=== PATIENT | male | born 1945 | race Caucasian/White ===

== ENCOUNTER 2021-08-06 12:36 | Outpatient (CLI) | payer MEDICARE, OTHER ==
[2021-08-06 13:08] LABS: Estimated GFR-MDRD - POC Greater than 90
== END 2021-08-06 12:37 | disposition home or self-care (01) ==
LOC: CT 12:36
PROVIDERS: ATTEND Thoracic Surgery (Cardiothoracic Vascular Surgery)
DX: I70.212 Atherosclerosis of native arteries of extremities with intermittent claudication, left leg (principal); I71.4 Abdominal aortic aneurysm, without rupture; I70.8 Atherosclerosis of other arteries; R16.1 Splenomegaly, not elsewhere classified
CPT/HCPCS: 75635; 82565

== ENCOUNTER 2022-07-30 14:00 | Outpatient (CLI) | payer MEDICARE, OTHER ==
[~2022-07-30 14:00] MED LIST: Iopamidol 370 76% 100 ML VIAL ONE
== END 2022-07-30 14:01 | disposition home or self-care (01) ==
LOC: CT 14:00
PROVIDERS: ATTEND Physician Assistant Medical
DX: K21.9 Gastro-esophageal reflux disease without esophagitis (principal); K59.09 Other constipation; R10.30 Lower abdominal pain, unspecified; I77.4 Celiac artery compression syndrome; I77.1 Stricture of artery
CPT/HCPCS: 74177; 82565; Q9967

== ENCOUNTER 2024-02-26 13:38 | Emergency (ER) | payer MEDICARE, OTHER ==
[2024-02-26 14:15] LABS: Hematocrit 38.2 % (42.0-52.0); Hemoglobin 12.6 g/dL (14.0-18.0); Mean Corpuscular Hemoglobin 32.7 pg (27.0-31.0); Mean Corpuscular Volume 99.2 fL (78.0-98.0); Mean Platelet Volume 10.5 fL (7.4-10.4); Platelet Count 131 10x3/uL (130-400); RBC Distribution Width 16.9 % (11.5-14.5); Red Blood Cell (RBC) Count 3.85 mill/uL (4.70-6.10)
[2024-02-26 14:41] LABS: Band 2 % (5-11); Large Platelets 2.9 % (0-5); Lymphocytes 75 % (21-51); Monocytes 2 % (0-10); Neutrophil 14 % (42-75); Platelet Adequacy Comment Platelets Decreased; Polychromasia SLIGHT = 2-3 cells HPF (0-2); Reactive Lymphocytes 8 % (0-10); Reflex for Review?? YES; Smudge Cells 54.9 %
[2024-02-26 14:44] LABS: ALT (SGPT) 13 U/L (8-55); AST (SGOT) 20 U/L (5-34); Albumin 4.1 g/dL (3.4-4.8); Alkaline Phosphatase 62 U/L (40-110); Anion Gap 16 mmol/L (10-20); BUN (Urea Nitrogen) 16 mg/dL (8.4-25.7); Bilirubin, Total 0.7 mg/dL (0.2-1.2); Calc. Creatinine Clearance 0 mL/min (70-130); Calcium 9.3 mg/dL (7.8-10.44); Carbon Dioxide 21 mmol/L (23-31); Chloride 108 mmol/L (98-107); Estimated GFR 90; Globulin 2.1 g/dL (2.4-3.5); Glucose 109 mg/dL (83-110); Potassium 4.6 mmol/L (3.5-5.1); Protein, Total 6.2 g/dL (5.8-8.1); Sodium 140 mmol/L (136-145)
[2024-02-26 14:51] LABS: Troponin I Less than 0.010 ng/mL (< 0.028)
== END 2024-02-26 18:10 | disposition home or self-care (01) ==
LOC: ERS 13:38
DX: D72.820 Lymphocytosis (symptomatic) (principal); R59.1 Generalized enlarged lymph nodes; R20.2 Paresthesia of skin; I99.8 Other disorder of circulatory system; I10 Essential (primary) hypertension; J44.9 Chronic obstructive pulmonary disease, unspecified; F17.200 Nicotine dependence, unspecified, uncomplicated; Z79.02 Long term (current) use of antithrombotics/antiplatelets; Z79.51 Long term (current) use of inhaled steroids; Z79.82 Long term (current) use of aspirin; Z79.899 Other long term (current) drug therapy
CPT/HCPCS: 32551; 70450; 71275; 74174; 80053; 83880; 84484; 85025; 85060; 93005

== ENCOUNTER 2024-10-11 11:43 | Day surgery (SDC) | payer MEDICARE, OTHER ==
[2024-10-11] MEDS ORDERED: diphenhydrAMINE 25 MG CAP ONE (13:28)
[2024-10-11] MEDS ORDERED: Acetaminophen 500 MG TAB ONE (13:28)
[2024-10-11] MEDS: diphenhydrAMINE 25 MG CAP PO SCH (13:32)
[2024-10-11] MEDS: Acetaminophen 500 MG TAB PO SCH (13:32)
[2024-10-11 16:22] VITALS: BP 141/62; TEMP 98
== END 2024-10-11 17:06 | disposition home or self-care (01) ==
LOC: ONC/OP 11:43
PROVIDERS: ATTEND Internal Medicine Hematology & Oncology
DX: D64.9 Anemia, unspecified (principal); C83.38 Diffuse large B-cell lymphoma, lymph nodes of multiple sites; C91.10 Chronic lymphocytic leukemia of B-cell type not having achieved remission
CPT/HCPCS: 36430; 80053; 86850; 86900; 86901; 86920; J1642; P9016

== ENCOUNTER 2024-11-10 15:24 | Inpatient (IN) | payer MEDICARE, SELFPAY ==
[2024-11-10 16:16] LABS: Hematocrit 18.3 % (42.0-52.0); Hemoglobin 5.5 g/dL (14.0-18.0); Mean Corpuscular Hemoglobin 25.6 pg (27.0-31.0); Mean Corpuscular Volume 85.1 fL (78.0-98.0); Platelet Count 19 10x3/uL (130-400); Red Blood Cell (RBC) Count 2.15 mill/uL (4.70-6.10); White Blood Cell (WBC) Count 26.67 10x3/uL (4.8-10.8)
[2024-11-10 16:27] LABS: ALT (SGPT) 50 U/L (Less than 45); AST (SGOT) 100 U/L (11-34); Albumin 2.2 g/dL (3.1-4.5); Alkaline Phosphatase 60 U/L (40-110); Anion Gap 30 mmol/L (10-20); BUN (Urea Nitrogen) 104 mg/dL (8.4-25.7); Bilirubin, Total 1.1 mg/dL (0.3-1.2); Calc. Creatinine Clearance 0 mL/min (70-130); Calcium 10.6 mg/dL (7.8-10.44); Carbon Dioxide 14 mmol/L (23-31); Chloride 119 mmol/L (98-107); Globulin 2.1 g/dL (2.4-3.5); Glucose 73 mg/dL (83-110); Potassium 5.0 mmol/L (3.5-5.1); Sodium 158 mmol/L (136-145)
[2024-11-10 16:51] LABS: INR-International Normal Ratio 1.7; Prothrombin Time 20.1 sec (12.0-14.7)
[2024-11-10 17:39] LABS: Macrocytosis SLIGHT = 6-15 cells (100X) (0-5/hpf); Microcytosis SLIGHT = 6-15 cells (100X) (0-5/hpf); Plasma Cells 0 % (0-0)
[2024-11-10] MEDS ORDERED: Acetaminophen 325 MG TAB PO PRN (18:57)
[2024-11-10] MEDS ORDERED: Ondansetron PF 4 MG/2 ML Vial IVP PRN (18:57)
[2024-11-10] MEDS ORDERED: Pantoprazole 40 MG VIAL IVP STA (19:35)
[2024-11-10] MEDS ORDERED: Pantoprazole 80 MG, Admixture Fee 1 EACH in Sodium Chloride 0.9% 100 ML IVPB SCH (19:45)
[2024-11-10 20:49] LABS: Bacteria/HPF None Seen HPF (None Seen); CAUTI Indications for Culture < 2yrs of age; Glucose, Urine (Dipstick) Normal (Negative); Leukocyte Negative Leu/uL (Negative); Protein, Urine (Dipstick) 10 mg/dL (Neg-Trace); RBC/HPF 0-3 HPF (0-3); Specific Gravity, Urine 1.014 (1.002-1.036); Sperm/HPF Rare HPF (None Seen)
[2024-11-10 21:01] LABS: Urine Culture Reflex Yes Yes
[2024-11-10 21:43] VITALS: BMI 19.5
[2024-11-10] MEDS: Furosemide 40 MG (4 mL) VIAL SLOW IVP SCH (22:02)
[2024-11-10] MEDS: Pantoprazole 80 MG, Admixture Fee 1 EACH in Sodium Chloride 0.9% 100 ML IVPB SCH (22:02)
[2024-11-10 22:32] LABS: Hematocrit 23.3 % (42.0-52.0); Hemoglobin 7.6 g/dL (14.0-18.0)
[2024-11-10] MEDS ORDERED: Vancomycin Dose by Levels Sliding Scale (Wt <71) FS SCH (23:15)
[2024-11-11] MEDS: diphenhydrAMINE 50 MG/ML VIAL IVP SCH (02:15)
[2024-11-11 05:24] LABS: Vancomycin, Trough 19.6 ug/mL
[2024-11-11 05:29] LABS: Anion Gap 15 mmol/L (10-20); BUN (Urea Nitrogen) 115 mg/dL (8.4-25.7); Calc. Creatinine Clearance 22 mL/min (70-130); Calcium 10.0 mg/dL (7.8-10.44); Carbon Dioxide 24 mmol/L (23-31); Chloride 120 mmol/L (98-107); Glucose 136 mg/dL (83-110); Potassium 3.4 mmol/L (3.5-5.1); Sodium 156 mmol/L (136-145)
[2024-11-11 05:36] LABS: Nucleated RBC (Manual Ct) 1 % (0); Platelet Adequacy Comment Platelets Decreased; Poikilocytosis SLIGHT = 6-15 cells HPF (0-5); Polychromasia SLIGHT = 2-3 cells HPF (0-2); Smudge Cells 16.1 %
[2024-11-11 05:39] LABS: Hematocrit 21.2 % (42.0-52.0); Hemoglobin 7.1 g/dL (14.0-18.0); Mean Corpuscular Hemoglobin 27.5 pg (27.0-31.0); Mean Corpuscular Volume 82.2 fL (78.0-98.0); Platelet Count 38 10x3/uL (130-400); Red Blood Cell (RBC) Count 2.58 mill/uL (4.70-6.10); White Blood Cell (WBC) Count 11.96 10x3/uL (4.8-10.8)
[2024-11-11] MEDS: Pantoprazole 40 MG VIAL IVP SCH ×2 (06:45→20:26)
[2024-11-11] MEDS ORDERED: Pantoprazole 40 MG VIAL IVP SCH (09:00)
[2024-11-11 10:44] LABS: Hematocrit 22.9 % (42.0-52.0); Hemoglobin 7.7 g/dL (14.0-18.0)
[2024-11-11 17:17] LABS: Hematocrit 19.3 % (42.0-52.0); Hemoglobin 6.3 g/dL (14.0-18.0)
[2024-11-11 23:27] LABS: Hematocrit 22.3 % (42.0-52.0); Hemoglobin 6.9 g/dL (14.0-18.0); Mean Corpuscular Hemoglobin 25.9 pg (27.0-31.0); Mean Corpuscular Volume 83.8 fL (78.0-98.0); Platelet Count 23 10x3/uL (130-400); Red Blood Cell (RBC) Count 2.66 mill/uL (4.70-6.10); White Blood Cell (WBC) Count 8.26 10x3/uL (4.8-10.8)
[2024-11-11 23:44] LABS: ALT (SGPT) 835 U/L (Less than 45); AST (SGOT) 1770 U/L (11-34); Albumin 1.9 g/dL (3.1-4.5); Alkaline Phosphatase 60 U/L (40-110); Anion Gap 27 mmol/L (10-20); BUN (Urea Nitrogen) 122 mg/dL (8.4-25.7); Bilirubin, Total 1.2 mg/dL (0.3-1.2); Calc. Creatinine Clearance 18 mL/min (70-130); Calcium 8.5 mg/dL (7.8-10.44); Carbon Dioxide 11 mmol/L (23-31); Chloride 125 mmol/L (98-107); Globulin 1.6 g/dL (2.4-3.5); Glucose 44 mg/dL (83-110); Potassium 3.5 mmol/L (3.5-5.1); Sodium 159 mmol/L (136-145)
[2024-11-11 23:53] LABS: INR-International Normal Ratio 2.9; PTT 42.2 sec (22.9-36.1); Prothrombin Time 30.6 sec (12.0-14.7)
[2024-11-11 23:57] LABS: Platelet Adequacy Comment Platelets Decreased; Polychromasia MODERATE = 3-4 cells HPF (0-2); Smudge Cells 25.3 %
[2024-11-12 00:08] LABS: #Basophils Less than 0.03 10x3/uL (0.0-0.2); #Eosinophils Less than 0.03 10x3/uL (0.0-0.7); #Monocytes 2.74 10x3/uL (0.11-0.59); #Neutrophils 0.19 10x3/uL (1.40-6.50); %Basophils 0.1 % (0.0-1.0); %Eosinophils 0.0 % (0.0-10.0); %Lymphocytes 63.4 % (21.0-51.0); %Monocytes 33.2 % (0.0-10.0); %Neutrophils 2.3 % (42.0-75.0)
[2024-11-12 04:35] LABS: Hematocrit 22.4 % (42.0-52.0); Hemoglobin 6.8 g/dL (14.0-18.0)
[2024-11-12 08:01] VITALS: BP 88/48; TEMP 97.7
[2024-11-12 08:02] LABS: Vancomycin, Trough 14.0 ug/mL
[2024-11-12] MEDS: Dextrose 50% Abboject 50 ML SYRINGE ONE (10:07)
== END 2024-11-12 10:52 | disposition expired | DRG 840 ==
LOC: ERS 15:24 → PCU 18:11
PROVIDERS: ADMIT Hospitalist; ATTEND Emergency Medicine
PROC: 3E03329 Introduction of Other Anti-infective into Peripheral Vein, Percutaneous Approach (ICD-10-PCS; 2024-11-10)
PROC: 30233N1 Transfusion of Nonautologous Red Blood Cells into Peripheral Vein, Percutaneous Approach (ICD-10-PCS; principal; 2024-11-11)
PROC: 6A550Z2 Pheresis of Platelets, Single (ICD-10-PCS; 2024-11-11)
DX: C83.30 Diffuse large B-cell lymphoma, unspecified site (principal); I50.33 Acute on chronic diastolic (congestive) heart failure; K55.21 Angiodysplasia of colon with hemorrhage; D62 Acute posthemorrhagic anemia; E87.0 Hyperosmolality and hypernatremia; R78.81 Bacteremia; N17.9 Acute kidney failure, unspecified; J96.11 Chronic respiratory failure with hypoxia; Z94.81 Bone marrow transplant status; D68.8 Other specified coagulation defects; D61.818 Other pancytopenia; C83.398 Diffuse large B-cell lymphoma of other extranodal and solid organ sites; Z66 Do not resuscitate; K22.70 Barrett's esophagus without dysplasia; D63.0 Anemia in neoplastic disease; I95.9 Hypotension, unspecified; B96.89 Other specified bacterial agents as the cause of diseases classified elsewhere; I73.9 Peripheral vascular disease, unspecified; I11.0 Hypertensive heart disease with heart failure; R29.6 Repeated falls; I25.10 Atherosclerotic heart disease of native coronary artery without angina pectoris; E78.5 Hyperlipidemia, unspecified; J44.9 Chronic obstructive pulmonary disease, unspecified; Z95.5 Presence of coronary angioplasty implant and graft; Z95.820 Peripheral vascular angioplasty status with implants and grafts; Z99.81 Dependence on supplemental oxygen; Z91.041 Radiographic dye allergy status; Z88.8 Allergy status to other drugs, medicaments and biological substances; Z87.891 Personal history of nicotine dependence; Z98.890 Other specified postprocedural states; Z90.49 Acquired absence of other specified parts of digestive tract; Z95.810 Presence of automatic (implantable) cardiac defibrillator; Z79.899 Other long term (current) drug therapy; Z87.19 Personal history of other diseases of the digestive system
CPT/HCPCS: 36415; 36416; 36430; 80202; 81001; 82274; 83605; 85014; 85018; 85610; 85730; 86850; 86900; 86901; 87040; 87086; 93005; 94760; 99285; J1200; J1940; J2470; J3373; J7070; P9016; P9035